=== PATIENT | female | born 1990 | race Caucasian/White ===

== ENCOUNTER 2023-08-14 09:01 | Day surgery (SDC) | payer OTHER, SELFPAY ==
[2023-08-12 07:33] VITALS: BMI 28.7
--- NOTE | 2023-08-14 | PATH_ITS ---
[facility] Accession Number: [id number] No. of containers..01 Tissue . 01 Material submitted: . fallopian tube - BILATERAL FALLOPIAN TUBES . 01 Diagnosis: Bilateral Fallopian Tubes, Segment Excision: Segments of fallopian tubes without diagnostic abnormalities. HEIDY 08/17/2023 1332 Local . 01 Electronically signed: . Alcon López MD, Pathologist NPI- [id number] . 01 Gross description: . The specimen is received in formalin labeled with the patient's name, , and bilateral fallopian tubes, and consists of two unoriented, fimbriated fallopian tubes measuring 6.5 x 0.5 cm and 7.4 x 0.8 cm respectively. Both tubes have violaceous, smooth serosa with no cystic structures identified. Sectioning reveals unremarkable stellate lumen. Central Office Operator sections to inclue one-half of bisected fimbriae and cross-sections are submitted as follows: A1: Longer fallopian tube. A2: [place] fallopian tube. ([id number]) /HEIDY 08/15/20239 Local . 01 Pathologist provided ICD-10: Z30.2, Z30.9 . 01 CPT . 708826 Specimen Comment: A courtesy copy of this report has been sent to [phone] Performed at: 01 [facility] [address] [place] [address], [place], [place] [id number] MD Costa Samson MD Phone: [phone]
[2023-08-14] MEDS: LACTATED RINGERS 1,000 ML 42 ML IV (09:22)
[2023-08-14 09:29] VITALS: BP 117/75; PULSE 74; RESP 18; TEMP 36.2; O2SAT 98; BMI 28.8
--- NOTE | 2023-08-14 10:43 | PM.PREOP ---
Pre-operative Note COVID-19 COVID-19 status: Not tested Interval Note History & Physical reviewed/Exam performed by Physician: Yes Changes to H&P: No
--- NOTE | 2023-08-14 10:44 | P.HPOB_ITS ---
History of Present Illness History of Present Illness Reason for admission: other (Request for sterilization) Narrative: Jordana is a 33-year-old , LMP 04/26/2023 who presented last month to discuss possible sterilization areas her is not receptive to the idea of vasectomy. Patient understands that bilateral laparoscopic salpingectomy is the preferred procedure for female sterilization due to efficacy benefits as well as risk reduction for potential serous carcinoma of the fallopian tube. Patient also understands that procedure is one which will result in her permanently and irreversibly being unable to bear children without benefit of assisted reproductive technology. After consideration of all options she wishes to proceed with laparoscopic bilateral salpingectomy and presents now for her scheduled surgery. [facility] Social History household members: spouse and children Smoking Status: Former smoker alcohol intake: never Meds Home Medications and Allergies Allergies Allergy/AdvReac Type Severity Reaction Status Date / Time No Known Drug Allergies Allergy Verified 08/14/23 09:23 Review of Systems Review of Systems Narrative: Problem-specific ROS positives included in HPI Exam Vital Signs (past 8 hours): - 08/14/23 09:29 Temperature 97.1 F L Pulse Rate 74 Respiratory Rate 18 Blood Pressure 117/75 Pulse Oximetry 98 Oxygen Delivery Method Room Air Oxygen Delivery Method Room Air Const General: cooperative and comfortable Nutritional Appearance: average body habitus Orientation: alert and oriented x3 HENMT Head: normal to inspection, atraumatic and abrasion Ears: hearing grossly normal bilaterally Face and sinus: face symmetric Eyes General: appearance normal, both eyes and all related structures Conjunctivae: conjunctivae normal Sclera: sclerae normal EOM: EOM intact bilaterally Neck Neck: normal visual inspection Resp Effort & Inspection: normal respiratory effort and able to speak in complete sentences Auscultation: clear to auscultation bilaterally Cardio Rate: regular rate Rhythm: regular rhythm Heart Sounds: S1 normal, S2 normal and no murmurs GI Inspection: normal to inspection Palpation: soft and no hepatosplenomegaly External Female Exam: other (No significant bleeding noted) Extrem General: no calf tenderness Psych Appearance: grossly normal Mental Status: mental status grossly normal Speech and Movement: speech and movement normal Mood: congruent mood Affect: normal affect Attitude: cooperative Thought Process: normal Thought Content: normal Judgment: judgment good Assessment & Plan Assessment and plan (1) Request for sterilization: Status: Acute Assessment & Plan narrative: Patient counselled regarding alternatives, risks, benefits, and potential complications associated with laparoscopic bilateral salpingectomy. She understands that this is a procedure which were permanently and irreversibly make it impossible for her to bear children without benefit of assisted reproductive technology. She also understands that there is a 1-08/999 chance of failing to prevent if that were to happen the likelihood of ectopic gestation is substantial. With full understanding of the above, a written consent has been executed for a laparoscopic bilateral salpingectomy. HHS form 687 executed previously as the patient has health benefits through the [facility] and they may potentially require execution of this form prior to sterilization. Time Spent With Patient Time with patient: less than 30 minutes
--- NOTE | 2023-08-14 11:14 | SUR.OPER ---
Lithotomy on padded OR bed, head on pillow, arms secured on padded arm boards at <90 degrees abduction. Legs secured in padded yellow fins stirrups.
[2023-08-14] MEDS: BUPIVACAINE 0.5% (PF) 30 ML, EPINEPHrine 0.15 MG INJ (11:29)
[2023-08-14 11:52] VITALS: BP 118/66; PULSE 64; RESP 16; TEMP 36.3; O2SAT 100
--- NOTE | 2023-08-14 11:55 | PM.GYNOP.1 ---
Operative Date/Time/Diagnoses Date of procedure: 08/14/23 Time of procedure: 11:00 Pre-op diagnosis: Request for sterilization Post-op diagnosis: same Procedure & Clinicians Procedure: Procedures Operation Date: 08/14/23 10:00 Actual Procedure Side Surgeon p Laparoscopic Salpingectomy Bilateral Lobo Forbes MD Indications: Jordana is a 33-year-old , LMP 04/26/2023 who presented last month to discuss possible sterilization areas her is not receptive to the idea of vasectomy. Patient understands that bilateral laparoscopic salpingectomy is the preferred procedure for female sterilization due to efficacy benefits as well as risk reduction for potential serous carcinoma of the fallopian tube. Patient also understands that procedure is one which will result in her permanently and irreversibly being unable to bear children without benefit of assisted reproductive technology. After consideration of all options she wishes to proceed with laparoscopic bilateral salpingectomy and presents now for her scheduled surgery. Surgeon: Lobo Forbes Anesthesia Type: General Operative Notes Findings: There is a small amount of non-clotting blood in the pelvis consistent with retrograde menses. The anterior cul-de-sac and posterior cul-de-sac are unremarkable with no scarring or endometriosis noted. The veins of the right broad ligament and ovarian veins on the right mildly dilated. Both fallopian tubes and ovaries appear normal. The remainder of the abdomen and pelvis are normal to laparoscopic inspection. Closure Type: primary Specimen(s): left tube and right tube Estimated blood loss (mL): 5 Blood products transfused: none Procedure in detail: With the patient under satisfactory general anesthesia in the modified dorsal lithotomy position, the perineum, vagina, and abdomen were prepped and draped for IUD removal and laparoscopic bilateral salpingectomy. A pre-surgical safety time-out was then taken in accordance with [facility] Main OR protocols. The umbilicus was then infiltrated with 0.5% Marcaine with epinephrine and 1 cm vertical incision was made in the inferior aspect of the umbilicus. Veress needle was used to insufflate the abdomen with carbon dioxide and once appropriately insufflated, 5 mm bladeless trocar and sleeve were inserted through the incision. Proper placement of the sleeve was confirmed with laparoscopic visualization and insufflation of the abdomen continued. A 2nd and 3rd 5 mm laparoscopic port were placed in the right and left mid quadrants using a similar technique and using a 3 puncture technique, the abdomen and pelvis were visualized with the findings as noted above. The distal aspect of the left fallopian tube was then grasped with a grasping forceps and using a Power Seal device, fimbria ovarica was coagulated and divided the dissection using the Power Seal continuing across the mesosalpinx to the cornua where the base fallopian tube was coagulated and divided. The left fallopian tube was then removed through one of the ports and submitted pathologic specimen. Attention was then turned to the right adnexa with distal tube grasped with a grasping forcep. The Power Seal device was then used to coagulate fimbria ovarica and the dissection was carried across the mesosalpinx to the cornua where the fallopian tube on the right side was amputated at the cornua following coagulation proximal tube the Power Seal device. Pelvis was inspected and there were no abnormalities noted following bilateral salpingectomy. The pneumoperitoneum was then vented and the ports removed from the abdominal wall. Port incisions were then closed with 4-0 Monocryl using inverted interrupted stitches and skin glue was applied. Appropriate dressings were then applied, patient was awakened, and transferred to the PACU for a period of observation after having tolerated the procedure well. Complications: none Post-operative Condition: stable Disposition: PACU Plan for aftercare: Routine postoperative care with follow-up planned for 2 weeks postop
[2023-08-14 11:57] VITALS: BP 100/65; PULSE 61; RESP 16; TEMP 36.2; O2SAT 99
[2023-08-14 12:05] VITALS: BP 103/76; PULSE 80; RESP 16; O2SAT 98
[2023-08-14 12:13] VITALS: BP 103/75; PULSE 66; RESP 16; TEMP 36.2; O2SAT 98
[2023-08-14] MEDS: LACTATED RINGERS 500 ML 1000 ML IV (12:15)
[2023-08-14] MEDS: ONDANSETRON 4 MG/2 ML INJ IV (12:24)
[2023-08-14 12:50] VITALS: BP 104/68; PULSE 74; RESP 17; TEMP 35.9; O2SAT 100
[2023-08-14] MEDS: hydrOXYzine 50 MG/ML INJ 25 MG IM (12:52)
== END 2023-08-14 13:15 | disposition home or self-care (01) ==
PROVIDERS: PCP Nurse Practitioner; Referring Provider Obstetrics & Gynecology; Visit Provider Obstetrics & Gynecology
PROC: 0UT74ZZ Resection of Bilateral Fallopian Tubes, Percutaneous Endoscopic Approach (ICD-10-PCS; CPT 58661; principal; 2023-08-14 10:00)
DX: Z30.2 Encounter for sterilization (principal); Z87.891 Personal history of nicotine dependence
CPT/HCPCS: 58661; J0171; J1100; J1170; J1885; J2250; J2405; J2704; J3010; J3410; J3490

== ENCOUNTER 2024-12-15 06:33 | Day surgery (SDC) | payer OTHER, SELFPAY ==
[2024-12-07 09:44] VITALS: BMI 28.1
[2024-12-15] VITALS (24 sets, daily range): BP systolic 99–135; BP diastolic 45–79; PULSE 43–104; RESP 9–18; TEMP 36.1–36.9; O2SAT 92–100; BMI 27.9; BMI 30.7
--- NOTE | 2024-12-15 | PATH_ITS ---
[facility] Accession Number: [id number] No. of containers..01 Tissue . 01 Material submitted: . uterus - UTERUS AND CERVIX . 01 Diagnosis: UTERUS AND CERVIX, TRANSVAGINAL HYSTERECTOMY: Cervix with no significant histomorphologic abnormality. Endocervix with no significant histomorphologic abnormality; Endocervix with partial stenosis; not readily probe patent into endometrial cavity at gross examination. Sections of lower uterine segment with endosalpingiosis. Proliferative endometrium; negative for significant atypia. Myometrium with focal adenomyosis. Uterine serosal cysts with a cytologically bland mesothelilal lining; additional IHC pending for further characterization. Results will be reported as an addendum. [facility] 12/21/2024 1707 Local . 01 Comment: This case is also reviewed by Dr. Alcon López (Julie), who agrees with the interpretation. . 01 Electronically signed: . Kayla Glaser MD, Pathologist NPI- [id number] . 01 Gross description: . Received in formalin with two identifiers and uterus and cervix, is an intact uterus (150 grams, 9.8 x 6.5 x 5.2 cm) with attached cervix (3.9 x 3.0 cm), and no additional adnexa. . The ectocervix is bean and wrinkled with a patulous os 1.9 cm in diameter. The serosal reflections are distorted, however, the presumed anterior paracervical margin is inked blue while the presumed posterior paracervical margin is inked black. The serosa is bean and slightly roughened with a group of thin-walled cysts containing bean serous fluid located adjacent to the presumed right adnexal stump across an area measuring 3.7 x 2.1 cm with individual cysts ranging from 0.5 to 1.9 cm in greatest dimension. Punctate hemorrhagic areas are identified adjacent to the cysts across an area measuring 2.5 x 1.1 cm. . The endocervical canal has bean herringbone mucosa and measures approximately 5.0 cm in length. The canal is partially probe patent, however, no continuous lumen is grossly identified between the endocervical canal and the endometrial cavity (this caused difficulty opening the specimen and no endometrium is grossly identified on the posterior half of the specimen). The endometrial cavity measures 3.2 cm from cornu to cornu and 2.4 cm in length with pink-red velvety endometrium that averages 0.2 cm in diameter. The myometrium is bean and trabecular measuring up to 1.9 cm in maximum thickness with no lesions identified. . Charge Master Coordinator sections are submitted as follows: A1: Anterior cervix. A2: Posterior cervix. A3: Cross section at endocervical narrowing. A4: Anterior full thickness section. A5: Posterior section no endometrium identified. A6: Posterior endometrium. A7: Serosal cysts and hemorrhagic area. ([id number]) . . Charge Master Coordinator additional sections are submitted as follows: A8-A9: Additional adnexal cystic structures. A10: Posterior lower uterine segment with the superior endometrial edge inked orange to include possible stenotic endocervical canal. ([id number]) /MRV 12/20/2024 2241 Local . 01 Microscopic: . Immunohistochemical stains for the following are performed to evaluate for block reactivity. The control stained with appropriate reactivity. . RESULTS: Block A7 CD10: Positive in region of interest, consistent with adenomyosis. PAX-8: Positive. WT1: Positive. ER: Negative. UT: Negative. Calretinin: Positive. D2-40: Positive. Shiva-EP4: Negative. . The uterine serosal cyst linings are immunopositive for calretinin, D2-40, WT1, and PAX8. They are immunonegative for ER, UT, and BerEP4. These findings suggest a mesothelial origin. A BAP1 IHC is requested for further characterization; results will be reported as an addendum. . * This test was developed and the performance characteristics were validated by [facility]. It has not been cleared or approved by the U.S. Food and Drug Administration. . 01 Pathologist provided ICD-10: N94.6 . 01 CPT . 252445, F58091, R43069 Specimen Comment: A courtesy copy of this report has been sent to [phone] Performed at: 01 [facility] [address], [place], [place] [id number] MD Costa Samson MD Phone: [phone]
[2024-12-15] MEDS: SCOPOLAMINE 1 PATCH TOP (06:55)
[2024-12-15] MEDS: LACTATED RINGERS 1,000 ML 42 ML IV ×2 (06:55→10:38)
[2024-12-15] MEDS: FAMOTIDINE 20 MG/2 ML VIAL IV (06:56)
[2024-12-15] MEDS: ACETAMINOPHEN 325 MG TABLET 975 MG PO (06:56)
--- NOTE | 2024-12-15 07:36 | PM.PREOP ---
Pre-operative Note COVID-19 COVID-19 status: Not tested Interval Note History & Physical reviewed/Exam performed by Physician: Yes Changes to H&P: No
[2024-12-15] MEDS: CEFAZOLIN 2 GM/100 ML PREMIX 100 ML IV (08:30)
--- NOTE | 2024-12-15 08:33 | SUR.OPER ---
Lithotomy on padded OR bed. [place] Pad Positioner under torso. Head on pillow, arms padded and tucked at sides. Legs secured in padded yellow fins stirrups.
[2024-12-15] MEDS: BUPIVACAINE 0.5% W/ EPI (PF) 30 ML VIAL INJ (08:54)
--- NOTE | 2024-12-15 09:27 | PM.GYNOP.1 ---
Operative Date/Time/Diagnoses Date of procedure: 12/15/24 Time of procedure: 08:10 Pre-op diagnosis: Severe dysmenorrhea Post-op diagnosis: same Procedure & Clinicians Procedure: Procedures Operation Date: 12/15/24 08:00 Actual Procedure Side Surgeon p Transvaginal Hysterectomy Lobo Forbes MD Indications: Jordana is a 33 you , LMP October 2023 who underwent an uneventful laparoscopic bilateral salpingectomy in July of 2023. Findings at the time of her salpingectomy included There is a small amount of non-clotting blood in the pelvis consistent with retrograde menses. The anterior cul-de-sac and posterior cul-de-sac are unremarkable with no scarring or endometriosis noted. The veins of the right broad ligament and ovarian veins on the right mildly dilated. Both fallopian tubes and ovaries appear normal. The remainder of the abdomen and pelvis are normal to laparoscopic inspection. The patient discontinued about a month after her salpingectomy and every menses since she resumed her periods after weaning, has been associated with severe right-sided pelvic pain,severe cramping during her menstrual flow. The pain subsides and resolves completely after her menstrual flow stops. She denies intermenstrual pain. Over the last 4-5 months each period, has been worse and worse, she has excruciating radiating pain beginning deep in the right side of the pelvis that takes her breathe away, makes her cry and occasionally vomit. Her menstrual flow is normal but nothing else about her periods is. She describes the pain as the worst she's ever experienced, worse than the childbirth than she experienced with her 4 deliveries. When she has the pain which is incapacitating at times, she is struggling to care for her children and she has had to have her come home to care for her children when the pain is most severe. She was seen at the [facility] ED on 03/05/2024 where imaging was performed. Abdominal pelvic CT with contrast showed cystic right adnexa. Physiologic pelvic fluid. Question paraovarian inflammatory change in the adjacent fat. Bladder showed no abnormal wall thickening, accounting for under distention. Pelvic lymph nodes were not enlarged. Impression of that study is questionable bacterial your read oophoritis of the right ureter. Recommend correlation with urine findings periods cystic right adnexa with question of inflammatory change in the adjacent fat. Consider pelvic inflammatory disease. Consider possible recent right adnexal cystic rupture. Recommend clinical correlation. Subsequently a transabdominal pelvic ultrasound was performed at that same ED visit which showed the uterus to be anteverted, measuring 7.2 x 4.5 x 6.3 cm. The myometrium is described as homogeneous. The endometrium measures 1 point 0 mm in combined thickness. The right ovary measures 3.2 x 2.4 x 3.0 cm with a calculated ovarian volume of 11.1 cc. The left ovary measures 2.3 x 1.9 x 2.0 cm with a calculated ovarian volume of 5.2 cc. There is a trace amount of right adnexal free fluid otherwise the ultrasound is considered unremarkable. Understandably, given her own experience and what she has apparently read online, she is convinced that post salpingectomy pain is far more common than believed by the medical profession and she is regretful of having the procedure performed. The patient is understandably upset about having significant pain with her menses following bilateral salpingectomy but she was reassured that while chronic pelvic pain syndromes can occasionally occur after bilateral salpingectomy the typical cause is not directly related to the salpingectomy but rather adhesion formation, her postsurgical inflammatory changes. Since her sterilization procedure, her symptoms have actually worsened and after consideration of all options, patient is now proceeding with transvaginal hysterectomy for relief of her menstrual pain. She presents today for her scheduled surgery. Surgeon: Lobo Forbes Constitutional Law Professor: Peggy Melchor Anesthesia Type: General Operative Notes Findings: The uterus is normal in size and shape. On the right cornual surface of the ovary there is several blebs of clear /light yellow fluid at the site of where the patient has been experiencing menstrual pain. Patient has very mild uterovaginal prolapse with a stage I cystocele and careful attention was paid to reconstruction of the uterosacral and cardinal ligaments as they were attached to the vaginal cuff. No other abnormalities were noted. Closure Type: primary Specimen(s): uterus Applied: catheter Estimated blood loss (mL): 75 Blood products transfused: none Procedure in detail: With the patient under satisfactory general endotracheal anesthesia in the modified dorsal lithotomy position, the perineum, vagina, and lower abdomen were prepped and draped in the usual manner for vaginal hysterectomy. A pre-surgical safety time-out was then taken in accordance with [facility] Main OR protocols. A weighted speculum was placed in the vagina and the cervix visualized. The cervix was then grasped with 2 single-tooth tenaculum so and the portio was infiltrated with 0.5% Marcaine with epinephrine circumferentially. A circumferential incision was then made with monopolar cutting current and the bladder was advanced anteriorly with a Ray-Greg using blunt dissection. Attention was then turned to the posterior cul-de-sac and the peritoneum was entered using Metzenbaum scissors. The posterior cul-de-sac mucosa was then tagged with the 0 Vicryl stitch. Any balance time clamps were then used take both the left and the right uterosacral ligament and each ligament was transfixed with 0 Vicryl in a transfixing suture. Entry into the anterior cul-de-sac was then performed without difficulty and a Taco retractor was placed into the anterior cul-de-sac. The handheld LigaSure device was then used to secure pedicle sequentially on both sides of the uterus all the way up to the cornua which was cross clamped with the LigaSure device, coagulated, and divided. Inspection of the pedicles revealed a slight amount of oozing from the right side and that was secured with a single [id number] of 0 Vicryl. Once pedicle hemostasis was assured, the vaginal cuff was closed with a series of 0 Vicryl [id number] stitches with careful incorporation of the uterosacral ligament pedicle into the vaginal cuff closure itself. Cuff hemostasis was excellent, and the procedure was terminated by removal of the weighted speculum from the vagina and transferred the patient to the PACU for a period of observation and recovery after having tolerated the procedure well. Complications: none Post-operative Condition: stable Disposition: PACU Plan for aftercare: Routine postoperative care with follow-up for 2 weeks after surgery or as needed
[2024-12-15] MEDS: HYDROMORPHONE 1 MG INJ IV ×3 (09:32→20:58)
[2024-12-15] MEDS: hydrOXYzine 50 MG/ML INJ 25 MG IM (09:45)
[2024-12-15] MEDS: fentaNYL 100 MCG/2 ML INJ IV ×2 (09:45→10:01)
[2024-12-15] MEDS: ONDANSETRON 4 MG/2 ML INJ IV ×2 (09:45→20:59)
[2024-12-15] MEDS: ePHEDrine 50 MG/ML VIAL IV ×3 (10:17→10:39)
[2024-12-15] MEDS: ACETAMINOPHEN 325 MG TABLET 650 MG PO ×2 (11:19→17:35)
[2024-12-15] MEDS: OXYCODONE IR 5 MG TABLET PO ×2 (11:19→20:01)
[2024-12-15] MEDS: LACTATED RINGERS 1,000 ML 100 ML IV (11:30)
[2024-12-15] MEDS: KETOROLAC 30 MG/ML VIAL IV ×2 (14:10→20:58)
[2024-12-16] MEDS: ACETAMINOPHEN 325 MG TABLET 650 MG PO (05:22)
[2024-12-16] MEDS: KETOROLAC 30 MG/ML VIAL IV (05:23)
[2024-12-16 05:55] LABS: Add Manual Diff / Slide Review NO; Basophils Absolute Auto 100 /uL (0-100); Basophils Percent Auto 0.7 % (0-2); Eosinophils Absolute Auto 0 /uL (0-450); Eosinophils Percent Auto 0.1 % (2-4); Hematocrit 33.5 % (36-46); Hemoglobin 11.4 g/dL (12.0-16.0); Lymphocytes Absolute Auto 2600 /uL (1100-4500); Lymphocytes Percent Auto 21.6 % (25-40); Mean Corpuscular HGB Conc 34.1 % (30-36); Mean Corpuscular Hemoglobin 30.1 PG (26-34); Mean Corpuscular Volume 88.2 fL (80-100); Monocytes Absolute Auto 600 /uL (0-900); Monocytes Percent Auto 4.7 % (3-14); Neutrophils Absolute Auto 8600 /uL (1500-7000); Neutrophils Percent Auto 72.9 % (50-75); Platelet Count 207 X10^3/uL (150-400); White Blood Cell Count 11.9 X10^3/uL (4.5-11.0)
--- NOTE | 2024-12-16 07:55 | P.DS_ITS ---
History of Present Illness History of Present Illness Date Patient Seen: 12/16/24 Time Patient Seen: 07:55 Chief complaint: Vaginal Hysterectomy Narrative: Jordana is a 33 you , LMP October 2023 who underwent an uneventful laparoscopic bilateral salpingectomy in July of 2023. Findings at the time of her salpingectomy included There is a small amount of non-clotting blood in the pelvis consistent with retrograde menses. The anterior cul-de-sac and posterior cul-de-sac are unremarkable with no scarring or endometriosis noted. The veins of the right broad ligament and ovarian veins on the right mildly dilated. Both fallopian tubes and ovaries appear normal. The remainder of the abdomen and pelvis are normal to laparoscopic inspection. The patient discontinued about a month after her salpingectomy and every menses since she resumed her periods after weaning, has been associated with severe right-sided pelvic pain,severe cramping during her menstrual flow. The pain subsides and resolves completely after her menstrual flow stops. She denies intermenstrual pain. Over the last 4-5 months each period, has been worse and worse, she has excruciating radiating pain beginning deep in the right side of the pelvis that takes her breathe away, makes her cry and occasionally vomit. Her menstrual flow is normal but nothing else about her periods is. She describes the pain as the worst she's ever experienced, worse than the childbirth than she experienced with her 4 deliveries. When she has the pain which is incapacitating at times, she is struggling to care for her children and she has had to have her come home to care for her children when the pain is most severe. She was seen at the [facility] ED on 03/05/2024 where imaging was performed. Abdominal pelvic CT with contrast showed cystic right adnexa. Physiologic pelvic fluid. Question paraovarian inflammatory change in the adjacent fat. Bladder showed no abnormal wall thickening, accounting for under distention. Pelvic lymph nodes were not enlarged. Impression of that study is questionable bacterial your read oophoritis of the right ureter. Recommend correlation with urine findings periods cystic right adnexa with question of inflammatory change in the adjacent fat. Consider pelvic inflammatory disease. Consider possible recent right adnexal cystic rupture. Recommend clinical correlation. Subsequently a transabdominal pelvic ultrasound was performed at that same ED visit which showed the uterus to be anteverted, measuring 7.2 x 4.5 x 6.3 cm. The myometrium is described as homogeneous. The endometrium measures 1 point 0 mm in combined thickness. The right ovary measures 3.2 x 2.4 x 3.0 cm with a calculated ovarian volume of 11.1 cc. The left ovary measures 2.3 x 1.9 x 2.0 cm with a calculated ovarian volume of 5.2 cc. There is a trace amount of right adnexal free fluid otherwise the ultrasound is considered unremarkable. Understandably, given her own experience and what she has apparently read online, she is convinced that post salpingectomy pain is far more common than believed by the medical profession and she is regretful of having the procedure performed. The patient is understandably upset about having significant pain with her menses following bilateral salpingectomy but she was reassured that while chronic pelvic pain syndromes can occasionally occur after bilateral salpingectomy the typical cause is not directly related to the salpingectomy but rather adhesion formation, her postsurgical inflammatory changes. Since her sterilization procedure, her symptoms have actually worsened and after consideration of all options, patient is now proceeding with transvaginal hysterectomy for relief of her menstrual pain. She presents today for her scheduled surgery. Discharge Providers Provider Date of admission: 12/15/2024 Discharge Date: 12/16/24 Primary care physician: GARY Corrales Discharge provider: Lobo Forbes MD Summary Hospital Course Discharge Diagnosis: Right-sided pelvic pain Severe dysmenorrhea status post bilateral salpingectomy Status post transvaginal hysterectomy Hospital Course: Patient was admitted on 12/15/2024 and underwent an uneventful transvaginal hysterectomy on that date. Full details of the procedure well summarized on my operative note of that date. Following surgery the patient did exceptionally well with prompt return of bowel and bladder function, she is ambulating independently, tolerating regular diet, and her pain is well relieved oral pain medications. She will be discharged at this time to home in an afebrile normotensive condition after counseling regarding precautionary symptoms, limitations of activity, medications, and plans for follow-up which will be in 2 weeks or as needed. Medications at discharge will include resumption while preadmission medications as well as ibuprofen 600 mg p.o. q.6 hours as needed for pain. Status at Discharge Cognitive/behavioral status at discharge: oriented Functional status at discharge: independent ambulation Overall status at discharge: patient is progressing back to baseline Time Spent with Patient Time spent: Less than 30 minutes Exam Vital Signs (past 8 hours): Oxygen Delivery Method Nasal Cannula Oxygen Flow Rate 0 Const General: cooperative and comfortable Nutritional Appearance: average body habitus Orientation: alert and oriented x3 HENMT Head: normal to inspection, atraumatic and abrasion Ears: hearing grossly normal bilaterally Face and sinus: face symmetric Eyes General: appearance normal, both eyes and all related structures Conjunctivae: conjunctivae normal Sclera: sclerae normal EOM: EOM intact bilaterally Neck Neck: normal visual inspection Resp Effort & Inspection: normal respiratory effort and able to speak in complete sentences Auscultation: clear to auscultation bilaterally Cardio Rate: regular rate Rhythm: regular rhythm Heart Sounds: S1 normal, S2 normal and no murmurs GI Inspection: normal to inspection Palpation: soft, no hepatosplenomegaly and tender (Mild, diffuse postsurgical tenderness) External Female Exam: other (No significant bleeding noted) Extrem General: no calf tenderness Psych Appearance: grossly normal Mental Status: mental status grossly normal Speech and Movement: speech and movement normal Mood: congruent mood Affect: normal affect Attitude: cooperative Thought Process: normal Thought Content: normal Judgment: judgment good Objective Labs 12/16/24 05:37 Labs: Laboratory Results - last 24 hr 12/16/24 05:37 WBC 11.9 H RBC 3.80 L Hgb 11.4 L Hct 33.5 L MCV 88.2 MCH 30.1 MCHC 34.1 RDW 13.0 Plt Count 207 Neut % (Auto) 72.9 Lymph % (Auto) 21.6 L Clinch % (Auto) 4.7 Eos % (Auto) 0.1 L Baso % (Auto) 0.7 Neut # (Auto) 8600 H Lymph # (Auto) 2600 Cl[place] # (Auto) 600 Eos # (Auto) 0 Baso # (Auto) 100 [facility] Surgical History Hx of tonsillectomy (2007) [place] teeth removed (2008) Hx of foot surgery (07/2012) History of dilation and curettage Hx of bilateral salpingectomy (08/14/23) History of female sterilization Social History household members: spouse and children alcohol intake: never Discharge Assessment & Plan Assessment and Plan Assessment: Right-sided pelvic pain Severe dysmenorrhea status post bilateral salpingectomy Status post transvaginal hysterectomy Plan of Treatment: Routine postoperative care with follow-up planned for 2 weeks after discharge Discharge Plan Discharge Plan Patient Disposition: Home Provider Discharge Comment: Please review the written instructions you received when you were discharged from the hospital. Your follow-up appointment is scheduled for 2 weeks after your surgery and I look forward to seeing you then. If however in the meanwhile you have any issues, concerns, or questions, please contact me either by phone through the office at [phone], or via the patient portal. Discharge orders & Medications Discharge Orders: Discharge (Order); Ordered 12/16/24 Ordered By: Lobo Forbes Prescriptions: Continued ibuprofen 200 mg capsule 200 mg PO Q6H Follow up/Referrals: Isis Ceballos ARNP [Primary Care Provider, Nursing] Lobo Forbes MD [Physician, CHILD AND FAMILY SERVICES SPECIALIST] Diet/Activity/Treatments Diet: Diet as Tolerated Activity: As tolerated Other treatments: [id number] Tylenol and/ or ibuprofen may be used as needed for additional pain relief. [id number] stool softeners and/or MiraLax may be used as needed for constipation. Skin/Wound/Dressing Care Report to your healthcare provider any signs of infection, such as:: chills, fever, increased pain and unusual drainage Dressing: N/A Visit Report/Discharge Packet Instructions: DI for Hysterectomy, DI for Prescription Opioid Use Stand Alone Forms: Surgery Discharge Print Language: Trinidadian Discharge Data Primary Care Provider: Isis Ceballos Attending Provider: Lobo Forbes Quality VTE Deep Vein Thrombosis/Pulmonary Embolism Present on Admission: No [facility] PROFEE Charge Codes Discharge inpatient/observation: [id number]
[2024-12-16 08:00] VITALS: BP 97/65; PULSE 65; RESP 16; TEMP 36.8; O2SAT 100
[2024-12-16] MEDS: OXYCODONE IR 5 MG TABLET PO (08:32)
--- NOTE | 2024-12-16 09:18 | PC.NURSE ---
D/c instructions reviewed with pt at bedside. Discussed narcotic prescription, and using OTC stool softeners to help prevent constipation. Pt confirmed that she has her follow up appointments scheduled. IV removed. Pt exited via w/c with TACTICAL/MOBILE WATCH OFFICER to private vehicle.
== END 2024-12-16 09:22 | disposition home or self-care (01) ==
LOC: OR 09:22 → AC 10:59
PROVIDERS: PCP Nurse Practitioner; Referring Provider Obstetrics & Gynecology; Visit Provider Obstetrics & Gynecology
PROC: (CPT 58260; principal; 2024-12-15 08:00)
DX: N94.6 Dysmenorrhea, unspecified (principal); Z87.891 Personal history of nicotine dependence; N88.2 Stricture and stenosis of cervix uteri; N94.89 Other specified conditions associated with female genital organs and menstrual cycle; N80.03 Adenomyosis of the uterus
CPT/HCPCS: 58260; 81025; 85025; J0690; J1100; J1171; J1885; J2250; J2405; J2704; J3010; J3410; J3475; J3490

== ENCOUNTER → 2025-01-25 09:01 | Outpatient (CLI) | payer OTHER, SELFPAY ==
[2024-12-15 12:24] VITALS: BMI 30.7
== END ==
PROVIDERS: PCP Nurse Practitioner; Referring Provider Obstetrics & Gynecology; Visit Provider Obstetrics & Gynecology
DX: R68.82 Decreased libido (principal)
CPT/HCPCS: 36415; 84270; 84402; 84403